=== PATIENT | male | born 1975 | race Caucasian/White ===

== ENCOUNTER 2016-07-30 14:47 | Emergency (ER) | payer SELFPAY ==
[2016-07-30 15:07] VITALS: BP 128/85
[2016-07-30] MEDS ORDERED: IBUPROFEN 600 MG TABLET PO ONE (16:20)
--- NOTE | 2016-07-30 16:20 | ER Document Report ---
ED Extremity Problem, Lower - General Chief Complaint: Leg Pain Stated Complaint: LEFT LEG INJURY Time Seen by Provider: 07/30/16 15:54 Mode of Arrival: Ambulatory TRAVEL OUTSIDE OF THE [place] IN LAST 30 DAYS: No - HPI Patient complains to provider of: Injury, Pain, Swelling Location: Leg Occurred: Yesterday Onset/Duration: Gradual Quality of pain: Pressure Severity: Moderate Pain Level: 4 Context: Other Recent injury: Yes - Puncture wound Associated symptoms: Painful ambulation, Other - Red swelling area Exacerbated by: Movement, Walking Relieved by: Nothing - Related Data Allergies/Adverse Reactions: Penicillins Allergy (Intermediate, Verified 07/30/16 14:55) Hives Past Medical History - General Information source: Patient - Social History Smoking Status: Current Every Day Smoker Cigarette use (# per day): Yes - pack per day Chew tobacco use (# tins/day): No Smoking Education Provided: Yes - (2 minutes Frequency of alcohol use: Occasional Drug Abuse: Marijuana Occupation: parts sales manager Lives with: Family Family History: Arthritis, CAD, CVA, DM, Hyperlipidemia, Hypertension, Malignancy, Thyroid Disfunction Patient has suicidal ideation: No Patient has homicidal ideation: No - Past Medical History Cardiac Medical History: Reports: None Pulmonary Medical History: Reports: Hx Asthma EENT Medical History: Reports: None Neurological Medical History: Reports: Hx Migraine Endocrine Medical History: Reports: None Renal/ Medical History: Reports: None Malignancy Medical History: Reports None GI Medical History: Reports: None Musculoskeltal Medical History: Reports Hx Musculoskeletal Trauma Skin Medical History: Reports None Psychiatric Medical History: Reports: None Traumatic Medical History: Reports: Hx Fractures - Wrist nose and ankle Infectious Medical History: Reports: None Past Surgical History: Reports: Hx Nose Surgery, Hx Orthopedic Surgery - Rest - Immunizations Immunizations up to date: Yes Hx Diphtheria, Pertussis, Tetanus Vaccination: Yes Review of Systems - Review of Systems Constitutional: No symptoms reported EENT: No symptoms reported Cardiovascular: No symptoms reported Respiratory: No symptoms reported Gastrointestinal: No symptoms reported Genitourinary: No symptoms reported Male Genitourinary: No symptoms reported Musculoskeletal: No symptoms reported Skin: Other - Red swollen area around a puncture wound on the left lower leg Hematologic/Lymphatic: No symptoms reported Neurological/Psychological: No symptoms reported Physical Exam - Vital signs Vitals: Temp Pulse Resp BP Pulse Ox 98.0 F 83 18 128/85 H 99 05/16/17 15:00 07/30/16 15:00 07/30/16 15:00 07/30/16 15:00 07/30/16 15:00 Interpretation: Normal - General General appearance: Appears well, Alert - HEENT Head: Normocephalic, Atraumatic Eyes: Normal Pupils: PERRL - Respiratory Respiratory status: No respiratory distress Chest status: Nontender Breath sounds: Normal Chest palpation: Normal - Cardiovascular Rhythm: Regular Heart sounds: Normal auscultation Murmur: No - Abdominal Inspection: Normal Distension: No distension Bowel sounds: Normal Tenderness: Nontender Organomegaly: No organomegaly - Back Back: Normal, Nontender - Extremities General upper extremity: Normal inspection, Nontender, Normal color, Normal ROM , Normal temperature General lower extremity: Normal weight bearing. No: Suman's sign Calf: Tender, Other - Erythema mild swelling around a puncture wound to the anterior calf. Left calf 22 cm at the area of the injury right Calf 21 cm. Area of erythema is 10 cm from top to bottom and usp around the leg. Site marked with a skin marker - Neurological Neuro grossly intact: Yes Cognition: Normal Orientation: AAOx4 [place] Coma Scale Eye Opening: Spontaneous [place] Coma Scale Verbal: Oriented [place] Coma Scale Motor: Obeys Commands [place] Coma Scale Total: 15 Speech: Normal Motor strength normal: LUE, RUE, LLE, RLE Sensory: Normal - Psychological Associated symptoms: Normal affect, Normal mood - Skin Skin Temperature: Warm Skin Moisture: Dry Skin Color: Normal Course - Re-evaluation Re-evalutation: 07/30/16 19:36 Patient eloped before receiving antibiotics I have tried calling his home multiple times and did not get an answer. He has a cellulitis to the left lower leg x-rays were negative no signs of any metal in the leg. I had instructed the patient to wait that I was coming getting some antibiotics and when I was occupied with another patient he left. - Vital Signs Vital signs: Temp Pulse Resp BP Pulse Ox 98.0 F 83 18 128/85 H 99 07/30/16 15:00 07/30/16 15:00 07/30/16 15:00 07/30/16 15:00 07/30/16 15:00 - Diagnostic Test Radiology reviewed: Image reviewed, Reports reviewed Discharge - Discharge Clinical Impression: Cellulitis of left lower leg Puncture wound of left lower leg Qualifiers: Encounter type: initial encounter Qualified Code(s): S81.832A - Puncture wound without foreign body, left lower leg, initial encounter Disposition: ELOPED
== END 2016-07-30 17:30 | disposition left against medical advice (07) ==
LOC: ER 14:47
DX: S81.832A Puncture wound without foreign body, left lower leg, initial encounter (principal); L03.116 Cellulitis of left lower limb; W26.8XXA Contact with other sharp object(s), not elsewhere classified, initial encounter; J45.909 Unspecified asthma, uncomplicated; F17.210 Nicotine dependence, cigarettes, uncomplicated; Z71.6 Tobacco abuse counseling; Z88.0 Allergy status to penicillin; Z53.29 Procedure and treatment not carried out because of patient's decision for other reasons
CPT/HCPCS: 99281

== ENCOUNTER 2018-12-27 21:13 | Emergency (ER) | payer SELFPAY ==
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
[2018-12-27] MEDS ORDERED: OXYCODONE-ACETAMINOPHEN 5-325 MG TABLET PO ONE (22:26)
[2018-12-27] MEDS ORDERED: SULFAMETHOXAZOLE/TRIMETHOPRIM 800-160 MG TABLET PO ONE (22:27)
--- NOTE | 2018-12-27 22:53 | RADIOLOGY REPORT (SQ) ---
3 VIEWS OF RIGHT ANKLE EXAM DATE: 12/27/2018 12:00 AM CDT HISTORY: Ankle pain. COMPARISON: None. FINDINGS: No acute fracture or dislocation is seen. The joint spaces are preserved. The soft tissues are unremarkable. IMPRESSION: No acute fracture or malalignment.
[2018-12-27 23:37] VITALS: BP 135/77
== END 2018-12-27 23:41 | disposition home or self-care (01) ==
LOC: ER 21:13
DX: L03.115 Cellulitis of right lower limb (principal); M25.571 Pain in right ankle and joints of right foot; W22.8XXA Striking against or struck by other objects, initial encounter; F17.200 Nicotine dependence, unspecified, uncomplicated; J45.909 Unspecified asthma, uncomplicated; R68.83 Chills (without fever); R03.0 Elevated blood-pressure reading, without diagnosis of hypertension; F12.10 Cannabis abuse, uncomplicated
CPT/HCPCS: 99283